=== PATIENT | female | born 1985 | race Caucasian/White ===

== ENCOUNTER 2020-06-05 11:27 | Outpatient (REF) | payer BC, SELFPAY ==
[2020-06-05 13:00] LABS: MANUAL DIFF FLAG NO
[2020-06-05 13:08] LABS: Basophils Percent Auto 0.3 % (0-2); Eosinophils Absolute Auto 0.1 X10*3/uL (0.0-0.4); Eosinophils Percent Auto 0.9 % (0-4); Hematocrit 38.2 % (37-47); Imm Gran Abs Auto 0.02 X10*3/uL (0.00-0.03); Imm Gran Pct Auto 0.2 % (0.0-0.4); Lymphocytes Absolute Auto 1.8 X10*3/uL (1.2-4.9); Lymphocytes Percent Auto 19.6 % (20-40); Mean Corpuscular Hemoglobin 30.4 pg (27.0-33.0); Mean Corpuscular Volume 89.5 fL (80-98); Mean Platelet Volume 11.3 fL (9.4-12.3); Monocytes Absolute Auto 0.5 X10*3/uL (0.1-1.2); Monocytes Percent Auto 5.9 % (2-11); Neutrophils Absolute Auto 6.5 X10*3/uL (2.0-8.3); Neutrophils Percent Auto 73.1 % (45-73); Platelet Count 242 X10*3/uL (160-400); Red Blood Count 4.27 X10*6/uL (4.20-5.50); Red Cell Distribution Width 11.9 % (11.0-16.0); White Blood Count 8.9 X10*3/uL (4.8-10.8)
[2020-06-05 13:28] LABS: Estimated Average Glucose 97 mg/dL
[2020-06-05 13:39] LABS: Alanine Aminotransferase 12 U/L (0-31); Albumin Level 4.1 g/dL (3.5-5.0); Alkaline Phosphatase 38 U/L (39-117); Anion Gap 10 (12-20); Aspartate Amino Transferase 16 U/L (5-31); Bilirubin Total 0.9 mg/dL (0.0-1.0); Blood Urea Nitrogen 17 mg/dL (9-16); C Reactive Protein 0.03 mg/dL (< or = 0.50); Carbon Dioxide 30 mmol/L (22-29); Chloride 105 mmol/L (96-108); Estimated Glomerular Filt Rate > 60; Glucose Random 69 mg/dL (60-115); Iron 128 mcg/dL (30-160); Percent Iron Saturation 38 % (15-50); Potassium 3.9 mmol/l (3.3-5.1); Rheumatoid Factor < 15.0 IU/mL (<15.0); Sodium 141 mmol/L (135-145); Total Iron Binding Capacity 339 mcg/dL (228-428); Total Protein 6.4 g/dL (6.5-8.0); Unsaturated Iron Binding 211 ug/dL
[2020-06-05 14:00] LABS: Erythrocyte Sedimentation Rate 3 MM/HR (0-20)
[2020-06-05 14:03] LABS: Ferritin 21 ng/mL (10-122); Free T4 (Free Thyroxine) 0.93 ng/dL (0.71-1.85); Thyroid Stimulating Hormone 1.38 uIU/mL (0.32-4.0); Vitamin D 25-OH Total 26.9 ng/mL (>30)
[2020-06-05 14:23] LABS: Folate > 20.0 ng/mL (> or = 4.0); Vitamin B12 866 pg/mL (200-900)
[2020-06-09 15:07] LABS: Anti Nuclear Antibody Screen NEGATIVE (NEGATIVE)
== END 2020-06-05 11:28 | disposition home or self-care (01) ==
LOC: HO.MANLDS 11:27
PROVIDERS: PCP Physician Assistant; Visit Provider Physician Assistant
DX: R53.83 Other fatigue (principal); E61.1 Iron deficiency; R42 Dizziness and giddiness
CPT/HCPCS: 36415; 80053; 82306; 82607; 82728; 82746; 83036; 83540; 84439; 84443; 85025; 85652; 86038; 86039; 86140; 86431

== ENCOUNTER 2021-06-13 10:53 | Inpatient (IN) | payer BC, SELFPAY ==
[2021-06-13 11:04] VITALS: BP 154/100; PULSE 87; RESP 20; TEMP 36.8; O2SAT 100; BMI 23.6
[2021-06-13 11:29] VITALS: BP 129/80; PULSE 65; RESP 18; O2SAT 100
[2021-06-13 11:53] LABS: UPreg QC Valid YES; Urine Pregnancy NEGATIVE (NEGATIVE)
--- NOTE | 2021-06-13 11:56 | ED.PSYCH ---
HPI - Psych General Chief Complaint: Psychiatric Symptoms <RAQUEL Tsai Last Filed: 06/13/21 17:34> Stated Complaint: crisis <RAQUEL Tsai Last Filed: 06/13/21 17:34> Time Seen by Provider: 06/13/21 11:40 <RAQUEL Tsai Last Filed: 06/13/21 17:34> Source: patient <RAQUEL Tsai Last Filed: 06/13/21 17:34> Mode of arrival: ambulatory <RAQUEL Tsai Last Filed: 06/13/21 17:34> History of Present Illness HPI Narrative: 36-year-old female with no significant past medical history s/p suicide attempts when vacuuming tied cord around her neck for 3-4 seconds and then called her mother. States had no pain to plan of doing this beforehand. Reports increased stressors at home with work/relationships. Denies oral/neck swelling, SOB, cough/choking, HI, H&H/drug use, VH/AH, N/V <RAQUEL Tsai - Last Filed: 06/13/21 17:34> MD complaint: suicidal ideation and feels depressed <RAQUEL Tsai Last Filed: 06/13/21 17:34> Related Data Home Medications: Home Medications Medication Instructions Recorded Confirmed lorazepam 0.5 mg tablet 1 tab PO BID PRN 06/13/21 06/13/21 <RAQUEL Tsai - Last Filed: 06/13/21 17:34> Allergies/Adverse Reactions: Allergies Allergy/AdvReac Type Severity Reaction Status Date / Time No Known Allergies Allergy Unverified 06/13/21 11:48 <RAQUEL Tsai - Last Filed: 06/13/21 17:34> Review of Systems Review of Systems: Constitutional: \No Fever, No Chills, No Fatigue, No Malaise ENT/Mouth: No Ear Pain, No Nasal Congestion, No sore throat Eyes: No Eye Pain, No Swelling Cardiovascular: No Chest Pain, No SOB Respiratory: No Cough, No Dyspnea Gastrointestinal: No Nausea, No Vomiting, No Diarrhea, No Constipation, No Abdominal pain Genitourinary: No Dysuria, No Urinary Frequency, No Hematuria Musculoskeletal: No joint pain, No Myalgias, No Joint Swelling Skin: No Skin Lesions, No rash Neuro: No Weakness, No Numbness, No Headache Psych: No Anxiety/Panic, + Depression, + SI, No HI, No AH/VH, No Social Issues <RAQUEL Tsai - Last Filed: 06/13/21 17:34> Yes all other systems are reviewed and are negative <RAQUEL Tsai - Last Filed: 06/13/21 17:34> PMFSH Past Medical History Medical History: Medical History No known health problems <RAQUEL Tsai - Last Filed: 06/13/21 17:34> Social History Social History: Social History Alcohol intake: current Alcohol intake frequency: holidays/special occasions only Patient Tobacco Use Status: Never used Tobacco Use of substances other than those prescribed or required for medical reasons: No Advance Directives: No Advance Directives Information Provided: No Guardian: No <RAQUEL Tsai - Last Filed: 06/13/21 17:34> Physical Exam Vital Signs: Vital Signs: Last Vital Signs Temp 98.2 F 06/14/21 06:29 Pulse 68 06/14/21 06:29 Resp 15 06/14/21 06:29 BP 102/53 L 06/14/21 06:29 Pulse Ox 97 06/14/21 06:29 Body Mass Index 23.6 <RAQUEL Tsai - Last Filed: 06/13/21 17:34> Vital Signs: Last Vital Signs Temp 98.2 F 06/14/21 06:29 Pulse 68 06/14/21 06:29 Resp 15 06/14/21 06:29 BP 102/53 L 06/14/21 06:29 Pulse Ox 97 06/14/21 06:29 Body Mass Index 23.6 <RAQUEL Padron - Last Filed: 06/14/21 07:41> Const: General: cooperative, healthy appearing, no acute distress and anxious <RAQUEL Tsai Last Filed: 06/13/21 17:34> Orientation/consciousness: patient oriented x3 <RAQUEL Tsai Last Filed: 06/13/21 17:34> Limitations: no limitations <Kay Vu PA - Last Filed: 06/13/21 17:34> HENMT: Head: Yes normal to inspection and Yes atraumatic <Kay Vu PA - Last Filed: 06/13/21 17:34> Ears: hearing grossly normal bilaterally <Kay Vu PA - Last Filed: 06/13/21 17:34> General nose exam: Normal external nose present <Kay Vu PA - Last Filed: 06/13/21 17:34> Face and sinus: Yes normal facial exam <Kay Vu PA - Last Filed: 06/13/21 17:34> Mouth: Normal oral and palatal mucosa present <Kay Vu PA - Last Filed: 06/13/21 17:34> Throat: Yes posterior oropharynx normal, Yes tonsils normal, Yes uvula midline, No peritonsillar mass and No uvular edema <Kay Vu PA - Last Filed: 06/13/21 17:34> Eyes: General: appearance normal, both eyes and all related structures <Kay Vu PA - Last Filed: 06/13/21 17:34> EOM: EOMs intact bilaterally <Kay Vu PA - Last Filed: 06/13/21 17:34> Neck: Other: No external erythema/ecchymosis/swelling or tenderness. No evidence of strangulation. <Kay Vu PA - Last Filed: 06/13/21 17:34> Neck: Yes normal visual inspection, Yes no lymphadenopathy, Yes no meningeal signs, Yes trachea midline, Yes supple, No anterior neck swelling and No midline deformity <Kay Vu PA - Last Filed: 06/13/21 17:34> Resp: Effort & Inspection: normal respiratory effort, not labored and no stridor <Kay Vu PA - Last Filed: 06/13/21 17:34> Auscultation: clear to auscultation bilaterally, no crackles, no rales, no rhonchi and no wheezes <Kay Vu PA - Last Filed: 06/13/21 17:34> Cardio: Rate: regular rate <Kay Vu PA - Last Filed: 06/13/21 17:34> Heart sounds: S1 normal heart sound present and S2 normal heart sound present <Kay Vu MO - Last Filed: 06/13/21 17:34> GI: Inspection: Yes normal to inspection <KayRAQUEL Colon - Last Filed: 06/13/21 17:34> Palpation (GI): Soft to palpation, nontender, no guarding and not rigid <Kay Vu MO - Last Filed: 06/13/21 17:34> Skin: Rashes: no rashes <Kay Vu MO - Last Filed: 06/13/21 17:34> Wounds: no wounds <Kay Vu MO - Last Filed: 06/13/21 17:34> Neuro: General: patient oriented x3, moves all extremities, no meningeal signs and CN's II-XI intact bilaterally <Kay Vu MO - Last Filed: 06/13/21 17:34> Gait exam (Neuro): Normal gait present <RAQUEL Tsai - Last Filed: 06/13/21 17:34> Extrem: General: Yes normal to inspection <Kay Vu MO - Last Filed: 06/13/21 17:34> Psych: Affect: Sad affect present and Anxious affect present <RAQUEL Tsai - Last Filed: 06/13/21 17:34> Attitude: cooperative <Kay Vu MO - Last Filed: 06/13/21 17:34> Thought content: Suicidality present and no homicidality <RAQUEL Tsai - Last Filed: 06/13/21 17:34> Insight: Good insight present (Psych) <Kay Vu MO - Last Filed: 06/13/21 17:34> Course Course Course Narrative: -1300--labs unremarkable, tox screen negative. Patient was evaluated by care team and is now an inpatient bed search. Physician observation initiated at 1:00 p.m. -1800--ED care transferred to [facility] pending inpatient bed search <RAQUEL Tsai - Last Filed: 06/13/21 17:34> Reevaluation(s) Reevaluation #1: At this time patient will remain physician observation as she is currently an inpatient bed search and needs more time for placement. BP noted to be lower than usual asked nurse for repeat vitals which are being done now. Last night was uneventful, patient was, cooperative. Vital signs are stable, lungs are clear, S1-S2 appreciated, abdomen soft nontender nondistended, no focal neuro deficits. <RAQUEL Padron - Last Filed: 06/14/21 07:41> Time: 07:39 <RAQUEL Padron - Last Filed: 06/14/21 07:41> MDM - Psych MDM Narrative Medical decision making narrative: 36-year-old female with no significant past medical history s/p suicide attempts when vacuuming tied cord around her neck for 3-4 seconds and then called her mother. On exam vital signs stable, and ADD, sad, tearful, anxious on exam, no evidence of strangulation, talking in complete sentences, no intraoral swelling. Lungs CTA, no stridor. Will obtain labs, [facility] and crisis consult <RAQUEL Tsai - Last Filed: 06/13/21 17:34> Medical Records Attestation: I reviewed the patient's medical records. <RAQUEL Tsai - Last Filed: 06/13/21 17:34> Lab Data Attestation: I reviewed the patient's lab results. <RAQUEL Tsai - Last Filed: 06/13/21 17:34> Result diagrams: : 06/13/21 12:01 06/13/21 12:01 <RAQUEL Tsai - Last Filed: 06/13/21 17:34> Labs: Lab Results 06/13/21 06/13/21 06/13/21 Range/Units 11:36 11:36 11:36 WBC (4.8-10.8) X10*3/uL RBC (4.20-5.50) X10*6/uL Hgb (12.0-16.0) g/dl Hct (37.0-47.0) % MCV (80.0-98.0) fL MCH (27.0-33.0) pg MCHC (31.0-35.0) g/dl RDW (11.0-16.0) % Plt Count (160-400) X10*3/uL MPV (9.4-12.3) fL Immature Gran % (Auto) (0.0-0.4) % Neut % (Auto) (45-73) % Lymph % (Auto) (20-40) % [place] % (Auto) (2-11) % Eos % (Auto) (0-4) % Baso % (Auto) (0-2) % Lymph # (Auto) (1.2-4.9) X10*3/uL [place] # (Auto) (0.1-1.2) X10*3/uL Eos # (Auto) (0.0-0.4) X10*3/uL Baso # (Auto) (0.0-0.2) X10*3/uL Abs Immat Gran (auto) (0.00-0.03) X10*3/uL Absolute Neuts (auto) (2.0-8.3) x10*3/uL Absolute Nucleated RBC (0.0-0.012) X10*3/uL Nucleated RBC % (auto) (0.0-0.2) /100WBC Sodium (135-145) mmol/L Potassium (3.3-5.1) mmol/L Chloride (96-108) mmol/L Carbon Dioxide (22-29) mmol/L Anion Gap (12-20) BUN (9-16) mg/dL Creatinine (0.5-1.4) mg/dL Estim Creat Clear Calc Estimated GFR Random Glucose (60-115) mg/dL Calcium (8.4-10.2) mg/dL Magnesium (1.6-2.6) mg/dL Total Bilirubin (0.0-1.0) mg/dL Direct Bilirubin (0.0-0.5) mg/dL AST (5-31) U/L ALT (0-31) U/L Alkaline Phosphatase (39-117) U/L Total Protein (6.5-8.0) g/dL Albumin (3.5-5.0) g/dL Urine Test NEGATIVE (NEGATIVE) Urine Opiates Screen Not Detected (Not Detect) Urine Fentanyl Screen Not Detected (Not Detect) Ur Barbiturates Screen Not Detected (Not Detect) Ur Phencyclidine Scrn Not Detected (Not Detect) Ur Amphetamines Screen Not Detected (Not Detect) U Benzodiazepines Scrn Not Detected (Not Detect) Urine Cocaine Screen Not Detected (Not Detect) U Marijuana (THC) Screen Not Detected (Not Detect) COVID-19 (FRANC) Negative (Negative) COVID-19 Clin Com See Note 06/13/21 06/13/21 Range/Units 12:01 12:01 WBC 7.4 (4.8-10.8) X10*3/uL RBC 4.33 (4.20-5.50) X10*6/uL Hgb 12.8 (12.0-16.0) g/dl Hct 39.0 (37.0-47.0) % MCV 90.1 (80.0-98.0) fL MCH 29.6 (27.0-33.0) pg MCHC 32.8 (31.0-35.0) g/dl RDW 12.4 (11.0-16.0) % Plt Count 248 (160-400) X10*3/uL MPV 10.0 (9.4-12.3) fL Immature Gran % (Auto) 0.3 (0.0-0.4) % Neut % (Auto) 70.3 (45-73) % Lymph % (Auto) 21.7 (20-40) % [place] % (Auto) 6.5 (2-11) % Eos % (Auto) 0.5 (0-4) % Baso % (Auto) 0.7 (0-2) % Lymph # (Auto) 1.6 (1.2-4.9) X10*3/uL [place] # (Auto) 0.5 (0.1-1.2) X10*3/uL Eos # (Auto) 0.0 (0.0-0.4) X10*3/uL Baso # (Auto) 0.1 (0.0-0.2) X10*3/uL Abs Immat Gran (auto) 0.02 (0.00-0.03) X10*3/uL Absolute Neuts (auto) 5.2 (2.0-8.3) x10*3/uL Absolute Nucleated RBC 0.000 (0.0-0.012) X10*3/uL Nucleated RBC % (auto) 0.0 (0.0-0.2) /100WBC Sodium 143 (135-145) mmol/L Potassium 4.1 (3.3-5.1) mmol/L Chloride 109 H (96-108) mmol/L Carbon Dioxide 25 (22-29) mmol/L Anion Gap 13 (12-20) BUN 12 (9-16) mg/dL Creatinine 0.82 (0.5-1.4) mg/dL Estim Creat Clear Calc 70.8 Estimated GFR > 60 Random Glucose 93 (60-115) mg/dL Calcium 9.5 (8.4-10.2) mg/dL Magnesium 1.8 (1.6-2.6) mg/dL Total Bilirubin 1.3 H (0.0-1.0) mg/dL Direct Bilirubin 0.5 (0.0-0.5) mg/dL AST 35 H D (5-31) U/L ALT 23 (0-31) U/L Alkaline Phosphatase 41 (39-117) U/L Total Protein 6.5 (6.5-8.0) g/dL Albumin 4.1 (3.5-5.0) g/dL Urine Test (NEGATIVE) Urine Opiates Screen (Not Detect) Urine Fentanyl Screen (Not Detect) Ur Barbiturates Screen (Not Detect) Ur Phencyclidine Scrn (Not Detect) Ur Amphetamines Screen (Not Detect) U Benzodiazepines Scrn (Not Detect) Urine Cocaine Screen (Not Detect) U Marijuana (THC) Screen (Not Detect) COVID-19 (FRANC) (Negative) COVID-19 Clin Com <RAQUEL Tsai - Last Filed: 06/13/21 17:34> Lab Results 06/13/21 06/13/21 06/13/21 Range/Units 11:36 11:36 11:36 WBC (4.8-10.8) X10*3/uL RBC (4.20-5.50) X10*6/uL Hgb (12.0-16.0) g/dl Hct (37.0-47.0) % MCV (80.0-98.0) fL MCH (27.0-33.0) pg MCHC (31.0-35.0) g/dl RDW (11.0-16.0) % Plt Count (160-400) X10*3/uL MPV (9.4-12.3) fL Immature Gran % (Auto) (0.0-0.4) % Neut % (Auto) (45-73) % Lymph % (Auto) (20-40) % [place] % (Auto) (2-11) % Eos % (Auto) (0-4) % Baso % (Auto) (0-2) % Lymph # (Auto) (1.2-4.9) X10*3/uL [place] # (Auto) (0.1-1.2) X10*3/uL Eos # (Auto) (0.0-0.4) X10*3/uL Baso # (Auto) (0.0-0.2) X10*3/uL Abs Immat Gran (auto) (0.00-0.03) X10*3/uL Absolute Neuts (auto) (2.0-8.3) x10*3/uL Absolute Nucleated RBC (0.0-0.012) X10*3/uL Nucleated RBC % (auto) (0.0-0.2) /100WBC Sodium (135-145) mmol/L Potassium (3.3-5.1) mmol/L Chloride (96-108) mmol/L Carbon Dioxide (22-29) mmol/L Anion Gap (12-20) BUN (9-16) mg/dL Creatinine (0.5-1.4) mg/dL Estim Creat Clear Calc Estimated GFR Random Glucose (60-115) mg/dL Calcium (8.4-10.2) mg/dL Magnesium (1.6-2.6) mg/dL Total Bilirubin (0.0-1.0) mg/dL Direct Bilirubin (0.0-0.5) mg/dL AST (5-31) U/L ALT (0-31) U/L Alkaline Phosphatase (39-117) U/L Total Protein (6.5-8.0) g/dL Albumin (3.5-5.0) g/dL Urine Test NEGATIVE (NEGATIVE) Urine Opiates Screen Not Detected (Not Detect) Urine Fentanyl Screen Not Detected (Not Detect) Ur Barbiturates Screen Not Detected (Not Detect) Ur Phencyclidine Scrn Not Detected (Not Detect) Ur Amphetamines Screen Not Detected (Not Detect) U Benzodiazepines Scrn Not Detected (Not Detect) Urine Cocaine Screen Not Detected (Not Detect) U Marijuana (THC) Screen Not Detected (Not Detect) COVID-19 (FRANC) Negative (Negative) COVID-19 Clin Com See Note 06/13/21 06/13/21 Range/Units 12:01 12:01 WBC 7.4 (4.8-10.8) X10*3/uL RBC 4.33 (4.20-5.50) X10*6/uL Hgb 12.8 (12.0-16.0) g/dl Hct 39.0 (37.0-47.0) % MCV 90.1 (80.0-98.0) fL MCH 29.6 (27.0-33.0) pg MCHC 32.8 (31.0-35.0) g/dl RDW 12.4 (11.0-16.0) % Plt Count 248 (160-400) X10*3/uL MPV 10.0 (9.4-12.3) fL Immature Gran % (Auto) 0.3 (0.0-0.4) % Neut % (Auto) 70.3 (45-73) % Lymph % (Auto) 21.7 (20-40) % [place] % (Auto) 6.5 (2-11) % Eos % (Auto) 0.5 (0-4) % Baso % (Auto) 0.7 (0-2) % Lymph # (Auto) 1.6 (1.2-4.9) X10*3/uL [place] # (Auto) 0.5 (0.1-1.2) X10*3/uL Eos # (Auto) 0.0 (0.0-0.4) X10*3/uL Baso # (Auto) 0.1 (0.0-0.2) X10*3/uL Abs Immat Gran (auto) 0.02 (0.00-0.03) X10*3/uL Absolute Neuts (auto) 5.2 (2.0-8.3) x10*3/uL Absolute Nucleated RBC 0.000 (0.0-0.012) X10*3/uL Nucleated RBC % (auto) 0.0 (0.0-0.2) /100WBC Sodium 143 (135-145) mmol/L Potassium 4.1 (3.3-5.1) mmol/L Chloride 109 H (96-108) mmol/L Carbon Dioxide 25 (22-29) mmol/L Anion Gap 13 (12-20) BUN 12 (9-16) mg/dL Creatinine 0.82 (0.5-1.4) mg/dL Estim Creat Clear Calc 70.8 Estimated GFR > 60 Random Glucose 93 (60-115) mg/dL Calcium 9.5 (8.4-10.2) mg/dL Magnesium 1.8 (1.6-2.6) mg/dL Total Bilirubin 1.3 H (0.0-1.0) mg/dL Direct Bilirubin 0.5 (0.0-0.5) mg/dL AST 35 H D (5-31) U/L ALT 23 (0-31) U/L Alkaline Phosphatase 41 (39-117) U/L Total Protein 6.5 (6.5-8.0) g/dL Albumin 4.1 (3.5-5.0) g/dL Urine Test (NEGATIVE) Urine Opiates Screen (Not Detect) Urine Fentanyl Screen (Not Detect) Ur Barbiturates Screen (Not Detect) Ur Phencyclidine Scrn (Not Detect) Ur Amphetamines Screen (Not Detect) U Benzodiazepines Scrn (Not Detect) Urine Cocaine Screen (Not Detect) U Marijuana (THC) Screen (Not Detect) COVID-19 (FRANC) (Negative) COVID-19 Clin Com <RAQUEL Padron - Last Filed: 06/14/21 07:41> Discharge Plan Discharge Clinical Impression: Suicide attempt <RAQUEL Tsai - Last Filed: 06/13/21 17:34> Patient Disposition: Still a Patient <RAQUEL Tsai - Last Filed: 06/13/21 17:34> Prescriptions: No Action lorazepam 0.5 mg tablet 1 tab PO BID PRN (Reason: Anxiety) RF: 0 <RAQUEL Tsai - Last Filed: 06/13/21 17:34>
[2021-06-13 12:01] LABS: COVID-19 Test Negative (Negative)
[2021-06-13 12:07] LABS: MANUAL DIFF FLAG NO
[2021-06-13 12:09] LABS: Amphetamine Screen Urine Not Detected (Not Detect); Barbiturates, Urine Not Detected (Not Detect); Benzodiazepines Screen Urine Not Detected (Not Detect); Cannabinoid Screen Urine Not Detected (Not Detect); Cocaine Screen Urine Not Detected (Not Detect); Fentanyl, urine Not Detected (Not Detect); Opiate Screen Urine Not Detected (Not Detect); Phencyclidine Screen Urine Not Detected (Not Detect)
[2021-06-13 12:10] LABS: Basophils Absolute Auto 0.1 X10*3/uL (0.0-0.2); Basophils Percent Auto 0.7 % (0-2); Eosinophils Percent Auto 0.5 % (0-4); Hemoglobin 12.8 g/dl (12.0-16.0); Imm Gran Abs Auto 0.02 X10*3/uL (0.00-0.03); Imm Gran Pct Auto 0.3 % (0.0-0.4); Lymphocytes Absolute Auto 1.6 X10*3/uL (1.2-4.9); Lymphocytes Percent Auto 21.7 % (20-40); Mean Corpuscular HGB Conc 32.8 g/dl (31.0-35.0); Mean Corpuscular Hemoglobin 29.6 pg (27.0-33.0); Mean Corpuscular Volume 90.1 fL (80.0-98.0); Monocytes Absolute Auto 0.5 X10*3/uL (0.1-1.2); Monocytes Percent Auto 6.5 % (2-11); Neutrophils Absolute Auto 5.2 x10*3/uL (2.0-8.3); Neutrophils Percent Auto 70.3 % (45-73); Platelet Count 248 X10*3/uL (160-400); Red Blood Count 4.33 X10*6/uL (4.20-5.50); Red Cell Distribution Width 12.4 % (11.0-16.0); White Blood Count 7.4 X10*3/uL (4.8-10.8)
[2021-06-13] MEDS: LORazepam 1 MG TABLET PO (12:14)
[2021-06-13 12:21] LABS: Alanine Aminotransferase 23 U/L (0-31); Albumin Level 4.1 g/dL (3.5-5.0); Alkaline Phosphatase 41 U/L (39-117); Anion Gap 13 (12-20); Aspartate Amino Transferase 35 U/L (5-31); Bilirubin Direct 0.5 mg/dL (0.0-0.5); Bilirubin Total 1.3 mg/dL (0.0-1.0); Blood Urea Nitrogen 12 mg/dL (9-16); Calcium 9.5 mg/dL (8.4-10.2); Carbon Dioxide 25 mmol/L (22-29); Chloride 109 mmol/L (96-108); Creatinine Clr Calc Pharmacy 70.8; Estimated Glomerular Filt Rate > 60; Glucose Random 93 mg/dL (60-115); Magnesium 1.8 mg/dL (1.6-2.6); Potassium 4.1 mmol/L (3.3-5.1); Sodium 143 mmol/L (135-145); Total Protein 6.5 g/dL (6.5-8.0)
--- NOTE | 2021-06-13 13:00 | PC.NURSE ---
pt's mother is in the common area with her.
--- NOTE | 2021-06-13 13:23 | PC.NURSE ---
1230. pt crying. states she has many stressors including that she broke off engagement in the spring. also talks of absorbing other's stress . Pt has steady housing and income. No documented mental health hx but states i think i have seasonal depression . Update was given to Mom and DAd with permission and Mom talked about eating disorders during teen years. Pt may have been interrrupted during act of putting vaccum cleaning cord around neck by phonecall from Mom. Patient did as that parents come and take her to the ED. Doesn't feel like eating currently.
--- NOTE | 2021-06-13 13:29 | PC.NURSE ---
visit from MOm. Both remain calm.
--- NOTE | 2021-06-13 14:29 | PC.NURSE ---
no ligature price noted
[2021-06-13 15:56] VITALS: BP 123/94; PULSE 89; TEMP 37; O2SAT 99
--- NOTE | 2021-06-13 20:58 | PC.NURSE ---
settling in to sleep. c/o headache and requesting ativan to sleep. has been calm, crying at times, up to food/BR. denies SI at this time.
[2021-06-13] MEDS: Ibuprofen 400 MG TABLET PO (21:12)
[2021-06-13] MEDS: LORazepam 0.5 MG TABLET PO (21:12)
--- NOTE | 2021-06-14 | ECG_ITS ---
Test Reason : medical clearance Blood Pressure : / mmHG Vent. Rate : 064 BPM Atrial Rate : 064 BPM P-R Int : 154 ms QRS Dur : 088 ms QT Int : 412 ms P-R-T Axes : 048 078 050 degrees QTc Int : 425 ms Normal sinus rhythm with sinus arrhythmia RSR' or QR pattern in V1 suggests right ventricular conduction delay Otherwise normal ECG No previous ECGs available Referred By: Tereso Valdez Electronically Signed By:SYL CHRISTY MD
--- NOTE | 2021-06-14 05:54 | PC.NURSE ---
Patient slept through the night, no distress observed/reported, behavior appropriate per report, VSS, disposition is section 12 inpatient bed search, will continue to monitor.
[2021-06-14 06:29] VITALS: BP 102/53; PULSE 68; RESP 15; TEMP 36.8; O2SAT 97
--- NOTE | 2021-06-14 07:08 | PC.NURSE ---
patient appears to remain at rest at present appears to remain asleep respirations are even and unlabored, appears in no distress.
[2021-06-14 07:54] VITALS: BP 126/81; PULSE 76; RESP 14; TEMP 36.5; O2SAT 96
--- NOTE | 2021-06-14 14:35 | PC.NURSE ---
called imc for report, waiting for a call back
[2021-06-14 18:00] VITALS: BP 115/84; PULSE 78; TEMP 36.7
--- NOTE | 2021-06-14 18:45 | PC.ADMIT ---
Patient is a single female, age 36, admitted as a CV admission to at 1555. She [place] [facility] [place] evaluated by the [place]ARE team and deemed in need of IPLOC. Patient has no previous IPLOC admissions for any psychiatric issues and denies any medical issues. Patient had apparently been contemplating suicide a couple times a week since October of 2020 with no specific plan in mind. The patient said that her job has been very stressful and she is also in a relationship with some stress involved. At this time her admission diagnosis is Unspecified Depressive Disorder. Patient was polite and cooperative during the admission process; she was tearful off and on. When patient was asked how she felt about her suicide attempt yesterday, putting a vacuum mold cleaner cord around her neck for a few seconds, patient said the was Indifferent that she survived. Patient said that she was not currently having any SI and said that she would let staff know if she has any thoughts to hurt herself or kill herself while on . Provider is aware of the admission and orders are in place. All admission paperwork completed and signed. Patient will be on 5 minute safety checks with a locked bathroom.
--- NOTE | 2021-06-14 19:48 | P.PNPSI_ITS ---
Subjective Subjective Reason For Visit: Depression, S/P suicide attempt Diagnostics Vital Signs (24Hr): Vital Signs - 24 hr 06/14/21 06:29 06/14/21 07:54 06/14/21 18:00 Temperature 98.2 F 97.7 F 98.0 F Pulse Rate 68 76 78 Respiratory Rate 15 14 Blood Pressure 102/53 L 126/81 115/84 Pulse Oximetry 97 96 Body Mass Index 23.6 Labs Results: 06/13/21 12:01 06/13/21 12:01 Labs: Laboratory Results - last 48 hr 06/13/21 06/13/21 06/13/21 11:36 11:36 11:36 WBC RBC Hgb Hct MCV MCH MCHC RDW Plt Count MPV Immature Gran % (Auto) Neut % (Auto) Lymph % (Auto) [place] % (Auto) Eos % (Auto) Baso % (Auto) Lymph # (Auto) [place] # (Auto) Eos # (Auto) Baso # (Auto) Abs Immat Gran (auto) Absolute Neuts (auto) Absolute Nucleated RBC Nucleated RBC % (auto) Sodium Potassium Chloride Carbon Dioxide Anion Gap BUN Creatinine Estim Creat Clear Calc Estimated GFR Random Glucose Calcium Magnesium Total Bilirubin Direct Bilirubin AST ALT Alkaline Phosphatase Total Protein Albumin Urine Test NEGATIVE Urine Opiates Screen Not Detected Urine Fentanyl Screen Not Detected Ur Barbiturates Screen Not Detected Ur Phencyclidine Scrn Not Detected Ur Amphetamines Screen Not Detected U Benzodiazepines Scrn Not Detected Urine Cocaine Screen Not Detected U Marijuana (THC) Screen Not Detected COVID-19 (FRANC) Negative COVID-19 Clin Com See Note 06/13/21 06/13/21 12:01 12:01 WBC 7.4 RBC 4.33 Hgb 12.8 Hct 39.0 MCV 90.1 MCH 29.6 MCHC 32.8 RDW 12.4 Plt Count 248 MPV 10.0 Immature Gran % (Auto) 0.3 Neut % (Auto) 70.3 Lymph % (Auto) 21.7 [place] % (Auto) 6.5 Eos % (Auto) 0.5 Baso % (Auto) 0.7 Lymph # (Auto) 1.6 [place] # (Auto) 0.5 Eos # (Auto) 0.0 Baso # (Auto) 0.1 Abs Immat Gran (auto) 0.02 Absolute Neuts (auto) 5.2 Absolute Nucleated RBC 0.000 Nucleated RBC % (auto) 0.0 Sodium 143 Potassium 4.1 Chloride 109 H Carbon Dioxide 25 Anion Gap 13 BUN 12 Creatinine 0.82 Estim Creat Clear Calc 70.8 Estimated GFR > 60 Random Glucose 93 Calcium 9.5 Magnesium 1.8 Total Bilirubin 1.3 H Direct Bilirubin 0.5 AST 35 H D ALT 23 Alkaline Phosphatase 41 Total Protein 6.5 Albumin 4.1 Urine Test Urine Opiates Screen Urine Fentanyl Screen Ur Barbiturates Screen Ur Phencyclidine Scrn Ur Amphetamines Screen U Benzodiazepines Scrn Urine Cocaine Screen U Marijuana (THC) Screen COVID-19 (FRANC) COVID-19 Clin Com Medications Medications Current Medications Acetaminophen (Acetaminophen 325 Mg Tablet) 650 mg PO Q6H PRN PRN Reason: Headache/Pain Mild Scale (1-3) Al Hydroxide/Mg Hydroxide (Magnesium Hydrox/Alum Hydrox 30 Ml Oral.Susp) 30 ml PO Q6H PRN PRN Reason: Heartburn/Nausea Hydroxyzine HCl (Hydroxyzine Hcl 25 Mg Tablet) 25 mg PO BEDTIME PRN PRN Reason: Anxiety Lorazepam (Lorazepam 0.5 Mg Tablet) 0.5 mg PO BID PRN PRN Reason: Anxiety Last Admin: 06/13/21 21:12 Dose: 0.5 mg Documented by: Magnesium Hydroxide (Milk Of Magnesia 30 Ml Oral.Susp) 30 ml PO DAILY PRN PRN Reason: Constipation Trazodone HCl (Trazodone Hcl 50 Mg Tablet) 50 mg PO BEDTIME PRN PRN Reason: Insomnia Allergies Allergies Allergy/AdvReac Type Severity Reaction Status Date / Time No Known Allergies Allergy Unverified 06/13/21 11:48 Assessment & Plan I spent minutes with the patient and/or on the patient floor today, greater than?50% of which was spent counseling/coordinating care.
[2021-06-14] MEDS: LORazepam 0.5 MG TABLET PO (21:42)
--- NOTE | 2021-06-14 21:51 | P.HPPS_ITS ---
HPI Date of Service: 06/14/21 Chief Complaint: Depression, S/P suicide attempt Sources of Information: patient interviewed, chart reviewed and crisis/core team assessment reviewed HPI Subjective Notes: Kline Warning, Conditional Voluntary and 3 Day Healthcare Proxy: No Guardianship: No Medical Problems Affecting Mental Status: No Narrative: Pt ia 36 year old female who carries a dx of MDD, recurrent and YSABEL. She self-presented to [facility] on 06/13/21 after an incident in which she was vacuuming and on impulse tied the cord around her neck for 3-4 seconds. She then called her mother who brought her to the ED.? Precipitating factors include hx of seasonal depression, has increased stressors at work, and recent significant breakup with fiance in 11/04 (they were supposed to be in 03/06, together on/ off for 18 yrs). Utox neg, no alcohol use. No OP treatment. On ativan 0.5 mg BID PRN for anxiety from PCP. I evaluated the pt this morning and upon inquiry she reports she has been feeling ?overwhelmed,? she is tearful throughout interview. She denies wanting to and does not think wrapping the vacuum cocoa bean cleaner cord was a suicide attempt, but says she was feeling significant distress. Denies hx of SIB or suicide attempts. Sleep has been on and off, ?last night I slept very well.? Says her PCP prescribed ativan 0.5 mg during the pandemic for anxiety but she has been recently overusing it and taking 3-4 tabs a night ?to feel numb.? Pt identifies numerous psychosocial stressors. Says she wakes up early and goes to the gym every day, works out for an hour to an hour and a half, worries about her wt due to family hx (sisters are overweight). She has disordered eating bx of restricting, does not want to weight over 125 lb. Says she has a long hx of seasonal affective sx, ?the time change is never good for me.? Sx include low energy, ?Im like a bear, i could hibernate.? She has a hx of utilizing coping skills such as Journaling and listening to motivational speeches on youtube, but says she has been ?slacking lately? since the time change. Pt reports she has friends and talks to her mom, but overall does not disclose personal information to her family members and is not close with her sisters, has long hx of insecure attachments. Reports work has been stressful due to staff shortages and she has felt overworked. Also reports she did not ever process her break up with her fiance in October, ?I never really cried or came to terms with it,? but has been feeling more emotional about this since her Birthday and with the holidays coming up, ?its catching up to me.? Figiselle had alcohol abuse issues, it was not a healthy relationship. Pt reports long hx of anxiety, internalizing bx, hard on herself, doesnt like ?when things go wrong.? Has irritability, will yell ?at the people I love the most,? denies aggressive bx. Denies sx of PTSD. Denies psychosis. No hx of manic or hypomanic episodes endorsed. Past Psychiatric History: -Has had brief attempts at OP therapy but did not connect with therapist, last saw one for two months over the summer after her breakup with her fiance. -No hx of past psychotropic medication (other than current ativan script) or IPLOC -Hx of seasonal depression since adolescence. Medical Evaluation Reviewed: Yes [facility] Medical History No known health problems Family History: -sisters: depression -father: alcoholic. -mom: ?nervous angie Social History: -Pt born and raised in [place], [place]. Has older sister and twin sister, parents still together. -Lives alone with 3 cats -Pt is a corrections unit supervisor at [employer] Substance History: -Cannabis: occasional use. Trauma History: -Has exposure to fathers alcoholism, parents fighting. Diagnostics Vital Signs (24Hr): Vital Signs - 24 hr 06/14/21 06:29 06/14/21 07:54 06/14/21 18:00 Temperature 98.2 F 97.7 F 98.0 F Pulse Rate 68 76 78 Respiratory Rate 15 14 Blood Pressure 102/53 L 126/81 115/84 Pulse Oximetry 97 96 Body Mass Index 23.6 Labs Results: 06/13/21 12:01 06/13/21 12:01 Labs: Laboratory Results - last 48 hr 06/13/21 06/13/21 06/13/21 11:36 11:36 11:36 WBC RBC Hgb Hct MCV MCH MCHC RDW Plt Count MPV Immature Gran % (Auto) Neut % (Auto) Lymph % (Auto) Eaton % (Auto) Eos % (Auto) Baso % (Auto) Lymph # (Auto) Eaton # (Auto) Eos # (Auto) Baso # (Auto) Abs Immat Gran (auto) Absolute Neuts (auto) Absolute Nucleated RBC Nucleated RBC % (auto) Sodium Potassium Chloride Carbon Dioxide Anion Gap BUN Creatinine Estim Creat Clear Calc Estimated GFR Random Glucose Calcium Magnesium Total Bilirubin Direct Bilirubin AST ALT Alkaline Phosphatase Total Protein Albumin Urine Test NEGATIVE Urine Opiates Screen Not Detected Urine Fentanyl Screen Not Detected Ur Barbiturates Screen Not Detected Ur Phencyclidine Scrn Not Detected Ur Amphetamines Screen Not Detected U Benzodiazepines Scrn Not Detected Urine Cocaine Screen Not Detected U Marijuana (THC) Screen Not Detected COVID-19 (FRANC) Negative COVID-19 [email or web address] See Note 06/13/21 06/13/21 12:01 12:01 WBC 7.4 RBC 4.33 Hgb 12.8 Hct 39.0 MCV 90.1 MCH 29.6 MCHC 32.8 RDW 12.4 Plt Count 248 MPV 10.0 Immature Gran % (Auto) 0.3 Neut % (Auto) 70.3 Lymph % (Auto) 21.7 Eaton % (Auto) 6.5 Eos % (Auto) 0.5 Baso % (Auto) 0.7 Lymph # (Auto) 1.6 Eaton # (Auto) 0.5 Eos # (Auto) 0.0 Baso # (Auto) 0.1 Abs Immat Gran (auto) 0.02 Absolute Neuts (auto) 5.2 Absolute Nucleated RBC 0.000 Nucleated RBC % (auto) 0.0 Sodium 143 Potassium 4.1 Chloride 109 H Carbon Dioxide 25 Anion Gap 13 BUN 12 Creatinine 0.82 Estim Creat Clear Calc 70.8 Estimated GFR > 60 Random Glucose 93 Calcium 9.5 Magnesium 1.8 Total Bilirubin 1.3 H Direct Bilirubin 0.5 AST 35 H D ALT 23 Alkaline Phosphatase 41 Total Protein 6.5 Albumin 4.1 Urine Test Urine Opiates Screen Urine Fentanyl Screen Ur Barbiturates Screen Ur Phencyclidine Scrn Ur Amphetamines Screen U Benzodiazepines Scrn Urine Cocaine Screen U Marijuana (THC) Screen COVID-19 (FRANC) COVID-19 [employer] Com Meds/Allergies Meds Home Medications Acetaminophen (Acetaminophen 325 Mg Tablet) 650 mg PO Q6H PRN PRN Reason: Headache/Pain Mild Scale (1-3) Al Hydroxide/Mg Hydroxide (Magnesium Hydrox/Alum Hydrox 30 Ml Oral.Susp) 30 ml PO Q6H PRN PRN Reason: Heartburn/Nausea Hydroxyzine HCl (Hydroxyzine Hcl 25 Mg Tablet) 25 mg PO BEDTIME PRN PRN Reason: Anxiety Lorazepam (Lorazepam 0.5 Mg Tablet) 0.5 mg PO BID PRN PRN Reason: Anxiety Last Admin: 06/14/21 21:42 Dose: 0.5 mg Documented by: Magnesium Hydroxide (Milk Of Magnesia 30 Ml Oral.Susp) 30 ml PO DAILY PRN PRN Reason: Constipation Trazodone HCl (Trazodone Hcl 50 Mg Tablet) 50 mg PO BEDTIME PRN PRN Reason: Insomnia Allergies Allergies Allergy/AdvReac Type Severity Reaction Status Date / Time No Known Allergies Allergy Unverified 06/13/21 11:48 Mental Status Exam Mental Status Exam Narrative: A&O. Somewhat disheveled appearance, eyelashes fake and falling out, in bathrobe brought from home. Good eye contact, attentive. No Tics or Tremors. No abnormal involuntary movements. Anxious but overall cooperative, engaged. Non-pressured speech, spontaneous with regular rate and rhythm, normal volume and prosody. No prolonged speech latency or dysarthria. Mood is ?depressed,? affect is anxious, tearful. Denies SI/SIB/HI upon inquiry. Denies A/VH or delusional thought content. Thoughts are coherent, organized. No known cognitive or memory impairment. Insight/ Judgment limited but adequate. Assessment & Plan Assessment & Plan (1) MDD (major depressive disorder), recurrent episode, moderate: Status: Acute Code(s): F33.1 - Major depressive disorder, recurrent, moderate (2) Seasonal affective disorder: Status: Acute Code(s): F33.8 - Other recurrent depressive disorders (3) YSABEL (generalized anxiety disorder): Status: Acute Code(s): F41.1 - Generalized anxiety disorder Assessment and Plan: Pt is a 36 y.o. female who reports long hx of seasonal affective disorder, however sx may more likely be a function of undiagnosed MDD, recurrent episode and YSABEL, as pt is high functioning but has been struggling with anxiety and mood sx for some time. She has a hx of restricting her eating, over exercising, low self esteem, hard on self, and has strained relationships in family system due to untreated father's alcoholism. Pt recently ended engagement to man she has been with on/ off for 18 yrs, describes him as alcoholic and the relationship was unhealthy. Pt endorses sx of irritability with increasing anxious distress in the context of feeling overworked. Plan: Pt wants to continue on ativan 0.5 mg BID PRN, prescribed by PCP. She does acknoweledge hx of overuse, however she is attached to this medication and precontemplative of discontinuing. Pt states she is interested in OP therapy and ambivalent about medication, however would be open to a trial of a low dose medication to help with sx of depression and anxiety. Discussed lexapro but will defer to primary team in the AM. Monitor response to medications. Monitor for safety in the milieu. Discharge on stabilization. Patient seen. Chart reviewed. Discussed with team. Obtain collateral contact info?as needed Reason for continued inpatient stay Substantial Risk for: harm to self and med/psych decompensation
[2021-06-15 06:00] VITALS: BP 120/83; PULSE 70; TEMP 36.6
[2021-06-15 09:16] LABS: Estimated Average Glucose 97 mg/dL; Hemoglobin A1C 117.0839 umol/L
[2021-06-15 09:18] LABS: Cholesterol 185 mg/dL; HDL Cholesterol 63 mg/dL; LDL Cholesterol Calculated 110 mg/dl; Triglycerides 60 mg/dL
[2021-06-15 09:39] LABS: Thyroid Stimulating Hormone 1.95 uIU/mL (0.32-4.0)
--- NOTE | 2021-06-15 09:47 | HO.PSYCHPN ---
Subjective Subjective Date of Service: 06/15/21 Reason For Visit: Depression, S/P suicide attempt Interim History: Patient reports that she is glad she is alive and denies any SI. She is upset by this recent event and is still perplexed as to how she could have done such a thing, denying any plan prior to this impulsive move. Patient discussed her history of anxiety and her daily worries of various things including bills, relationships with friends, the quality of her work, etcetera. These worries carry over into the evening in cause her to have trouble sleeping. Also interferes with relationships. Patient says about twice a week she gets to near panic. Patient shared gratitude for discussion and although formally against taking medications, will consider a trial of an SSRI given that this level of anxiety has become overwhelming to her. That said she would very much like to obtain a therapist and feels the need to process both recent events life longer experiences. She is also interested in attending partial post discharge. Patient did put in a 3 day notice today saying that she finds this environment triggering; she has supportive friends and family and while she agrees she needs help she does not feel the need to be on a locked unit which she reports seems to be counterproductive. Patient has no other history of suicide attempt andis not even sure this was an actual suicide attempt or just an impulsive gesture, though it did scare her. Denies history of trauma No history of manic type behaviors or episodes Father is addicted to alcohol Mental Status Exam Mental Status Exam Narrative: Pt is alert and oriented; behavior is cooperative, friendly; dressed in bathrobe from home with good hygiene; mood is described as anxious and affect congruent, intermittently tearful; eye contact appropriate; Speech is normal rate, volume and prosody and not pressured; no psychomotor agitation/retardation present; thought process is organized, logical and goal directed. Thought content is on getting treatment; otherwise pertinent to relevant topics and without any delusional content, paranoid ideations or grandiosity; denies any SI/HI. There is no evidence of perceptual disturbance. Patients insight and judgment mildly impaired but adequate. Diagnostics Vital Signs (24Hr): Vital Signs - 24 hr 06/14/21 18:00 06/15/21 06:00 Temperature 98.0 F 98 F Pulse Rate 78 70 Blood Pressure 115/84 120/83 Body Mass Index 23.6 Labs Results: 06/13/21 12:01 06/13/21 12:01 Labs: Laboratory Results - last 48 hr 06/13/21 06/13/21 06/13/21 11:36 11:36 11:36 WBC RBC Hgb Hct MCV MCH MCHC RDW Plt Count MPV Immature Gran % (Auto) Neut % (Auto) Lymph % (Auto) Cherry % (Auto) Eos % (Auto) Baso % (Auto) Lymph # (Auto) Cherry # (Auto) Eos # (Auto) Baso # (Auto) Abs Immat Gran (auto) Absolute Neuts (auto) Absolute Nucleated RBC Nucleated RBC % (auto) Sodium Potassium Chloride Carbon Dioxide Anion Gap BUN Creatinine Estim Creat Clear Calc Estimated GFR Random Glucose Estimat Average Glucose Hemoglobin A1c % Calcium Magnesium Total Bilirubin Direct Bilirubin AST ALT Alkaline Phosphatase Total Protein Albumin Triglycerides Cholesterol LDL Cholesterol, Calc HDL Cholesterol TSH Free T4 Urine Test NEGATIVE Urine Opiates Screen Not Detected Urine Fentanyl Screen Not Detected Ur Barbiturates Screen Not Detected Ur Phencyclidine Scrn Not Detected Ur Amphetamines Screen Not Detected U Benzodiazepines Scrn Not Detected Urine Cocaine Screen Not Detected U Marijuana (THC) Screen Not Detected COVID-19 (FRANC) Negative COVID-19 Clin Com See Note 06/13/21 06/13/21 06/15/21 12:01 12:01 08:13 WBC 7.4 RBC 4.33 Hgb 12.8 Hct 39.0 MCV 90.1 MCH 29.6 MCHC 32.8 RDW 12.4 Plt Count 248 MPV 10.0 Immature Gran % (Auto) 0.3 Neut % (Auto) 70.3 Lymph % (Auto) 21.7 Cherry % (Auto) 6.5 Eos % (Auto) 0.5 Baso % (Auto) 0.7 Lymph # (Auto) 1.6 Cherry # (Auto) 0.5 Eos # (Auto) 0.0 Baso # (Auto) 0.1 Abs Immat Gran (auto) 0.02 Absolute Neuts (auto) 5.2 Absolute Nucleated RBC 0.000 Nucleated RBC % (auto) 0.0 Sodium 143 Potassium 4.1 Chloride 109 H Carbon Dioxide 25 Anion Gap 13 BUN 12 Creatinine 0.82 Estim Creat Clear Calc 70.8 Estimated GFR > 60 Random Glucose 93 Estimat Average Glucose 97 Hemoglobin A1c % 5.0 Calcium 9.5 Magnesium 1.8 Total Bilirubin 1.3 H Direct Bilirubin 0.5 AST 35 H D ALT 23 Alkaline Phosphatase 41 Total Protein 6.5 Albumin 4.1 Triglycerides Cholesterol LDL Cholesterol, Calc HDL Cholesterol TSH Free T4 Urine Test Urine Opiates Screen Urine Fentanyl Screen Ur Barbiturates Screen Ur Phencyclidine Scrn Ur Amphetamines Screen U Benzodiazepines Scrn Urine Cocaine Screen U Marijuana (THC) Screen COVID-19 (FRANC) COVID-19 [employer] 06/15/21 08:13 WBC RBC Hgb Hct MCV MCH MCHC RDW Plt Count MPV Immature Gran % (Auto) Neut % (Auto) Lymph % (Auto) Cherry % (Auto) Eos % (Auto) Baso % (Auto) Lymph # (Auto) Cherry # (Auto) Eos # (Auto) Baso # (Auto) Abs Immat Gran (auto) Absolute Neuts (auto) Absolute Nucleated RBC Nucleated RBC % (auto) Sodium Potassium Chloride Carbon Dioxide Anion Gap BUN Creatinine Estim Creat Clear Calc Estimated GFR Random Glucose Estimat Average Glucose Hemoglobin A1c % Calcium Magnesium 2.0 Total Bilirubin Direct Bilirubin AST ALT Alkaline Phosphatase Total Protein Albumin Triglycerides 60 Cholesterol 185 LDL Cholesterol, Calc 110 HDL Cholesterol 63 TSH 1.95 Free T4 1.00 Urine Test Urine Opiates Screen Urine Fentanyl Screen Ur Barbiturates Screen Ur Phencyclidine Scrn Ur Amphetamines Screen U Benzodiazepines Scrn Urine Cocaine Screen U Marijuana (THC) Screen COVID-19 (FRANC) COVID-19 Clin Com Medications Medications Current Medications Acetaminophen (Acetaminophen 325 Mg Tablet) 650 mg PO Q6H PRN PRN Reason: Headache/Pain Mild Scale (1-3) Al Hydroxide/Mg Hydroxide (Magnesium Hydrox/Alum Hydrox 30 Ml Oral.Susp) 30 ml PO Q6H PRN PRN Reason: Heartburn/Nausea Hydroxyzine HCl (Hydroxyzine Hcl 25 Mg Tablet) 25 mg PO BEDTIME PRN PRN Reason: Anxiety Lorazepam (Lorazepam 0.5 Mg Tablet) 0.5 mg PO BID PRN PRN Reason: Anxiety Last Admin: 06/14/21 21:42 Dose: 0.5 mg Documented by: Magnesium Hydroxide (Milk Of Magnesia 30 Ml Oral.Susp) 30 ml PO DAILY PRN PRN Reason: Constipation Trazodone HCl (Trazodone Hcl 50 Mg Tablet) 50 mg PO BEDTIME PRN PRN Reason: Insomnia Allergies Allergies Allergy/AdvReac Type Severity Reaction Status Date / Time No Known Allergies Allergy Unverified 06/13/21 11:48 Assessment & Plan Assessment & Plan (1) MDD (major depressive disorder), recurrent episode, moderate: Status: Acute Code(s): F33.1 - Major depressive disorder, recurrent, moderate (2) Seasonal affective disorder: Status: Acute Code(s): F33.8 - Other recurrent depressive disorders (3) YSABEL (generalized anxiety disorder): Status: Acute Code(s): F41.1 - Generalized anxiety disorder Assessment and Plan: Pt is a 36 y.o. female who reports long hx of seasonal affective disorder, however sx may more likely be a function of undiagnosed MDD, recurrent episode and YSABLE, as pt is high functioning but has been struggling with anxiety and mood sx for some time. She has a hx of restricting her eating, over exercising, low self esteem, hard on self, and has strained relationships in family system due to untreated father's alcoholism. Pt recently ended engagement to man she has been with on/ off for 18 yrs, describes him as alcoholic and the relationship was unhealthy. Pt endorses sx of irritability with increasing anxious distress in the context of feeling overworked. -patient has long history of anxiety that has become overwhelming given recent psychosocial stressors; that said she is becoming more aware of her people pleasing attitude and starting to trying challenge it. Patient no longer has any suicidal ideation, is future oriented and wanting treatment. Patient is considering starting an SSRI even though she has traditionally avoided psychiatric medications. She mostly wants therapy as an outpatient and writer editor agrees that this will be an essential part of her recovery as she has chronic struggles with anxiety, moderate depression and self-esteem. Patient placed a 3 day notice. Patient will remain in the unit for another day or so however if she remains stable and with good impulse and behavioral control, will likely discharge. Plan: 3 day notice q15 min checks Pt considering SSRI continue for now, ativan 0.5 mg BID PRN, prescribed by PCP. She does acknoweledge hx of overuse, however she is attached to this medication and precontemplative of discontinuing. Monitor response to medications. Monitor for safety in the milieu. Discharge on stabilization. Patient seen. Chart reviewed. Discussed with team. Obtain collateral contact info?as needed I spent minutes with the patient and/or on the patient floor today, greater than?50% of which was spent counseling/coordinating care. Reason for contiued inpatient stay Substantial Risk for: med/psych decompensation
[2021-06-15 10:06] LABS: Folate 18.9 ng/mL (> or = 4.0); Vitamin B12 1140 pg/mL (200-900)
--- NOTE | 2021-06-15 14:19 | PC.NURSE ---
3 DAY NOTICE SIGNED ON 06/15/2021. UP ON Monday.
[2021-06-15 19:40] VITALS: BP 116/71; PULSE 72; TEMP 36.1; O2SAT 97
[2021-06-15] MEDS: LORazepam 0.5 MG TABLET PO (21:49)
[2021-06-16 06:20] VITALS: BP 103/70; PULSE 77; RESP 16; TEMP 36.1; O2SAT 98
--- NOTE | 2021-06-16 13:56 | HO.PSYCHPN ---
Subjective Subjective Date of Service: 06/16/21 Reason For Visit: Depression, S/P suicide attempt Interim History: Patient reports she is doing much better. She said she slept well last night and is grateful that she can discharge tomorrow. Patient denies any SI. She is still perplexed as to what caused her suicidal act and is trying to come up with the Why she thinks that may be she was feeling so anxious and so overwhelmed that she was just trying to get the anxieties to stop. Patient still ambivalent about medications, struggling with the stigma, especially from her family and worries about side effects. Patient however was able to ask all her questions and feel comfortable coming to the conclusion that she will indeed try Prozac (real estate underwriter reviewed risks/side effects). Patient would like to attend partial after discharge and was thankful that social Work was able to set her up with a therapist. Patient's father visited today which she said was awkward however her older sister visited later on which was very comforting for patient. Patient shared about her family dynamic, the un-spoken issues in the family, and specifically their father's chronic alcoholism which is seldom discussed. Patient feels that a lot of her anxiety comes from coping with this issue while growing up. Mental Status Exam Mental Status Exam Narrative: Pt is alert and oriented; behavior is cooperative, friendly; dressed in bathrobe from home with good hygiene; mood is described as better and affect brighter, calmer; eye contact appropriate; Speech is normal rate, volume and prosody and not pressured; no psychomotor agitation/retardation present; thought process is organized, logical and goal directed. Thought content is on getting treatment; otherwise pertinent to relevant topics and without any delusional content, paranoid ideations or grandiosity; denies any SI/HI. There is no evidence of perceptual disturbance. ?Patients insight and judgment appears intact. Diagnostics Vital Signs (24Hr): Vital Signs - 24 hr 06/15/21 19:40 06/16/21 06:20 Temperature 97.0 F 96.9 F Pulse Rate 72 77 Respiratory Rate 16 Blood Pressure 116/71 103/70 Pulse Oximetry 97 98 BMI result Body Mass Index 23.6 Labs Results: 06/13/21 12:01 06/13/21 12:01 Labs: Laboratory Results - last 48 hr 06/15/21 06/15/21 06/15/21 08:13 08:13 08:13 Estimat Average Glucose 97 Hemoglobin A1c % 5.0 Magnesium 2.0 Triglycerides 60 Cholesterol 185 LDL Cholesterol, Calc 110 HDL Cholesterol 63 Vitamin B12 1140 H Folate 18.9 TSH 1.95 Free T4 1.00 Medications Medications Current Medications Acetaminophen (Acetaminophen 325 Mg Tablet) 650 mg PO Q6H PRN PRN Reason: Headache/Pain Mild Scale (1-3) Al Hydroxide/Mg Hydroxide (Magnesium Hydrox/Alum Hydrox 30 Ml Oral.Susp) 30 ml PO Q6H PRN PRN Reason: Heartburn/Nausea Hydroxyzine HCl (Hydroxyzine Hcl 25 Mg Tablet) 25 mg PO BEDTIME PRN PRN Reason: Anxiety Lorazepam (Lorazepam 0.5 Mg Tablet) 0.5 mg PO BID PRN PRN Reason: Anxiety Last Admin: 06/15/21 21:49 Dose: 0.5 mg Documented by: Magnesium Hydroxide (Milk Of Magnesia 30 Ml Oral.Susp) 30 ml PO DAILY PRN PRN Reason: Constipation Trazodone HCl (Trazodone Hcl 50 Mg Tablet) 50 mg PO BEDTIME PRN PRN Reason: Insomnia Allergies Allergies Allergy/AdvReac Type Severity Reaction Status Date / Time No Known Allergies Allergy Unverified 06/13/21 11:48 Assessment & Plan Assessment & Plan (1) MDD (major depressive disorder), recurrent episode, moderate: Status: Acute Code(s): F33.1 - Major depressive disorder, recurrent, moderate (2) Seasonal affective disorder: Status: Acute Code(s): F33.8 - Other recurrent depressive disorders (3) YSABEL (generalized anxiety disorder): Status: Acute Code(s): F41.1 - Generalized anxiety disorder Assessment and Plan: Pt is a 36 y.o. female who reports long hx of seasonal affective disorder, however sx may more likely be a function of undiagnosed MDD, recurrent episode and YSABEL, as pt is high functioning but has been struggling with anxiety and mood sx for some time. She has a hx of restricting her eating, over exercising, low self esteem, hard on self, and has strained relationships in family system due to untreated father's alcoholism. Pt recently ended engagement to man she has been with on/ off for 18 yrs, describes him as alcoholic and the relationship was unhealthy. Pt endorses sx of irritability with increasing anxious distress in the context of feeling overworked. -patient has long history of anxiety that has become overwhelming given recent psychosocial stressors; that said she is becoming more aware of her people pleasing attitude and starting to trying challenge it. Patient no longer has any suicidal ideation, is future oriented and wanting treatment. Patient is considering starting an SSRI even though she has traditionally avoided psychiatric medications. She mostly wants therapy as an outpatient and real estate underwriter agrees that this will be an essential part of her recovery as she has chronic struggles with anxiety, moderate depression and self-esteem. Patient placed a 3 day notice. Patient will remain in the unit for another day or so however if she remains stable and with good impulse and behavioral control, will likely discharge. -patient reports feeling better. She denies any SI at all. She is very eager to engage with therapy including 1 on 1 psychotherapy as well as attending partial program post discharge. Patient made the decision to start on Prozac feeling that the benefits outweighed the risks and her concerns. Patient reports feeling safe and would like to discharge tomorrow. Patient has remained stable with good behavioral and impulse control the unit. She is attending groups and is engaged in therapy. Patient is not in imminent risk for harm to self or others and her request for discharge honored. Plan: 3 day notice q15 min checks Start Prozac 10 mg continue for now, ativan 0.5 mg BID PRN, prescribed by PCP. She does acknoweledge hx of overuse, however she is attached to this medication and precontemplative of discontinuing. Monitor response to medications. Monitor for safety in the milieu. Discharge on stabilization. Patient seen. Chart reviewed. Discussed with team. Obtain collateral contact info?as needed I spent minutes with the patient and/or on the patient floor today, greater than?50% of which was spent counseling/coordinating care. Reason for contiued inpatient stay Substantial Risk for: stable for discharge
[2021-06-16 18:35] VITALS: BP 107/68; PULSE 71; RESP 17; TEMP 36.5; O2SAT 99
[2021-06-17 06:00] VITALS: BP 154/57; PULSE 91; TEMP 36.8; O2SAT 98
--- NOTE | 2021-06-17 10:55 | PM.PSYDC ---
DS: Providers Provider Date of Service: 06/17/21 Date of admission: 06/14/21 10:24 Date of discharge: 06/17/21 Primary care physician: Asad Ahumada MD Admitting clinician: Tammy Morales Attending physician on discharge: Bernard Batista DS: Diagnosis Discharge Diagnosis (1) MDD (major depressive disorder), recurrent episode, moderate: Status: Chronic (2) Seasonal affective disorder: Status: Chronic (3) YSABEL (generalized anxiety disorder): Status: Chronic DS: Medications Discharge Medications Home Medications: Home Medications Medication Instructions Recorded Confirmed lorazepam 0.5 mg tablet 1 tab PO BID PRN 06/13/21 06/13/21 norethindrone 1 mg-ethinyl 1 tab PO DAILY 06/14/21 06/14/21 estradiol 10 mcg (24)-iron 10 mcg(2) tablet (Lo Loestrin Fe) Previous Rx's Medication Instructions Recorded fluoxetine 10 mg capsule (Prozac) 10 mg PO DAILY 30 Days #30 cap 06/17/21 Mental Status Exam Mental Status Exam Narrative: Pt is alert and oriented; behavior is cooperative, friendly, calm; dressed in casual cloths with good hygiene; mood is described as better and affect brighter, calmer; eye contact appropriate; Speech is normal rate, volume and prosody and not pressured; no psychomotor agitation/retardation present; thought process is organized, logical and goal directed. Thought content is on continuing treatment post discharge; otherwise pertinent to relevant topics and without any delusional content, paranoid ideations or grandiosity; denies any SI/HI. There is no evidence of perceptual disturbance. ?Patients insight and judgment are intact. Data Data Completed and Pending Completed studies during hospitalization [Text1]: 06/13/21 06/13/21 06/13/21 11:36 11:36 11:36 WBC RBC Hgb Hct MCV MCH MCHC RDW Plt Count MPV Immature Gran % (Auto) Neut % (Auto) Lymph % (Auto) Sterling % (Auto) Eos % (Auto) Baso % (Auto) Lymph # (Auto) Sterling # (Auto) Eos # (Auto) Baso # (Auto) Abs Immat Gran (auto) Absolute Neuts (auto) Absolute Nucleated RBC Nucleated RBC % (auto) Sodium Potassium Chloride Carbon Dioxide Anion Gap BUN Creatinine Estim Creat Clear Calc Estimated GFR Random Glucose Estimat Average Glucose Hemoglobin A1c % Calcium Magnesium Total Bilirubin Direct Bilirubin AST ALT Alkaline Phosphatase Total Protein Albumin Triglycerides Cholesterol LDL Cholesterol, Calc HDL Cholesterol Vitamin B12 Folate TSH Free T4 Urine Test NEGATIVE Urine Opiates Screen Not Detected Urine Fentanyl Screen Not Detected Ur Barbiturates Screen Not Detected Ur Phencyclidine Scrn Not Detected Ur Amphetamines Screen Not Detected U Benzodiazepines Scrn Not Detected Urine Cocaine Screen Not Detected U Marijuana (THC) Screen Not Detected COVID-19 ([facility]) Negative COVID-19 Site[employer]inder See Note 06/13/21 06/13/21 06/15/21 12:01 12:01 08:13 WBC 7.4 RBC 4.33 Hgb 12.8 Hct 39.0 MCV 90.1 MCH 29.6 MCHC 32.8 RDW 12.4 Plt Count 248 MPV 10.0 Immature Gran % (Auto) 0.3 Neut % (Auto) 70.3 Lymph % (Auto) 21.7 Sterling % (Auto) 6.5 Eos % (Auto) 0.5 Baso % (Auto) 0.7 Lymph # (Auto) 1.6 Sterling # (Auto) 0.5 Eos # (Auto) 0.0 Baso # (Auto) 0.1 Abs Immat Gran (auto) 0.02 Absolute Neuts (auto) 5.2 Absolute Nucleated RBC 0.000 Nucleated RBC % (auto) 0.0 Sodium 143 Potassium 4.1 Chloride 109 H Carbon Dioxide 25 Anion Gap 13 BUN 12 Creatinine 0.82 Estim Creat Clear Calc 70.8 Estimated GFR > 60 Random Glucose 93 Estimat Average Glucose 97 Hemoglobin A1c % 5.0 Calcium 9.5 Magnesium 1.8 Total Bilirubin 1.3 H Direct Bilirubin 0.5 AST 35 H D ALT 23 Alkaline Phosphatase 41 Total Protein 6.5 Albumin 4.1 Triglycerides Cholesterol LDL Cholesterol, Calc HDL Cholesterol Vitamin B12 Folate TSH Free T4 Urine Test Urine Opiates Screen Urine Fentanyl Screen Ur Barbiturates Screen Ur Phencyclidine Scrn Ur Amphetamines Screen U Benzodiazepines Scrn Urine Cocaine Screen U Marijuana (THC) Screen COVID-19 ([facility]ANC) COVID-19 [employer]inder 06/15/21 06/15/21 08:13 08:13 WBC RBC Hgb Hct MCV MCH MCHC RDW Plt Count MPV Immature Gran % (Auto) Neut % (Auto) Lymph % (Auto) Sterling % (Auto) Eos % (Auto) Baso % (Auto) Lymph # (Auto) Sterling # (Auto) Eos # (Auto) Baso # (Auto) Abs Immat Gran (auto) Absolute Neuts (auto) Absolute Nucleated RBC Nucleated RBC % (auto) Sodium Potassium Chloride Carbon Dioxide Anion Gap BUN Creatinine Estim Creat Clear Calc Estimated GFR Random Glucose Estimat Average Glucose Hemoglobin A1c % Calcium Magnesium 2.0 Total Bilirubin Direct Bilirubin AST ALT Alkaline Phosphatase Total Protein Albumin Triglycerides 60 Cholesterol 185 LDL Cholesterol, Calc 110 HDL Cholesterol 63 Vitamin B12 1140 H Folate 18.9 TSH 1.95 Free T4 1.00 Urine Test Urine Opiates Screen Urine Fentanyl Screen Ur Barbiturates Screen Ur Phencyclidine Scrn Ur Amphetamines Screen U Benzodiazepines Scrn Urine Cocaine Screen U Marijuana (THC) Screen COVID-19 ([facility]) COVID-19 Clin Com DS: Summary Hospital Course Hospital Course: Pt is a 36 y.o. female who reports long hx of episodic MDD and YSABEL who self presented with SI and having impulsively timing a cord around her neck in the face of untreated anxiety, depression and break-up with figisellee after over a decade of time together. Patient is high functioning but has been struggling with anxiety and mood sx for some time. She has a hx of restricting her eating, over exercising, low self esteem, hard on self, and has strained relationships in family system due to untreated father's alcoholism. Pt recently ended engagement to man she has been with on/ off for 18 yrs, describes him as alcoholic and the relationship was unhealthy. Pt endorses sx of irritability with increasing anxious distress in the context of feeling overworked. On admission, patient was anxious and with moderate depression however suicidality had fully resolved. Patient signed a CV. She was eager for treatment though very uncomfortable on the unit. Patient was forthcoming during interviews and articulate and self aware about her history and struggles with both anxiety and depression, much of it is stemming from growing up with an alcoholic father. Patient was very ambivalent about starting medication given its stigma and her family's negative attitude towards mental health however patient reviewed the risks/side effects of Prozac and considered it worth starting this medication for treatment. Patient was also eager to get into therapy which was set up for her. Patient placed a 3 day notice. She felt that her depression had lessened, anxiety lessened and that she had a better sense of the factors that led up to this incident and also ready to address them in therapy. Patient remained in good behavioral and impulse control; she was appropriate with peers and staff, attending groups and engaged in treatment. Patient is future oriented, with strong community support via family and friends. Patient is optimistic about working on her issues as an outpatient. Her affect is noticeably brighter and more relaxed. She reports feeling safe and says she would reach out for help if feeling otherwise. Patient is not in imminent risk for harm to self or others and does not rise to the level of involuntary commitment. Her [facility] for discharge was honored. -patient reports feeling better.? She denies any SI at all.? She is very eager to engage with therapy including 1 on 1 psychotherapy as well as attending partial program post discharge.? Patient made the decision to start on Prozac feeling that the benefits outweighed the risks and her concerns.? Patient reports feeling safe and would like to discharge tomorrow.? Patient has remained stable with good behavioral and impulse control the unit.? She is attending groups and is engaged in therapy.? Patient is not in imminent risk for harm to self or others and her request for discharge honored. Oil Well Engineer discussed patient's use of benzodiazepine. She agrees that this is not an ideal medication and will work to discontinue it. Of note she is prescribed 0.5 mg at bedtime; the only times she ever increased the dose was over past few weeks, struggling to sleep during which time she would intermittently take a second 0.5mg tab. She has never taking it during the day and never taken more than 1 mg total in the evening. Patient has no history of substance abuse Time spent discussing smoking cessation with patient: 3 to 10 minutes (non-smoker) Status at Discharge Functional status at discharge: independent ambulation Overall status at discharge: patient is back to baseline Time Spent with Patient Time attestation: Total time spent providing and/or coordinating discharge services: Time spent: Greater than 30 minutes Discharge Plan Discharge Patient Disposition: Home, Self-Care Discharge Diagnosis: Mdd, recurrent, moderate, in partial remission Referrals: Maria E Majano [Other] - 06/22/21 11:00 am (Initial Diagnostic Evaluation with Therapist In Office Appointment) Ann Barrera [Other] - 07/13/21 3:20 pm (Tele-health appointment for Psychiatric Evaluation Check email for link to provider appointment) Ann Barrera [Other] - 08/10/21 10:00 am (Medication Management Appointment Tele-Health appointment be sure check to check email for link to scheduled appointment.) Asad Ahumada MD [Primary Care Provider] - (PLEASE FOLLOW UP ) Discharge Medications: New fluoxetine [Prozac] 10 mg capsule 10 mg PO DAILY 30 Days Qty: 30 RF: 0 Continued Lo Loestrin Fe 1 mg-10 mcg (24)/10 mcg (2) tablet 1 tab PO DAILY RF: 0 Discontinued lorazepam 0.5 mg tablet 1 tab PO BID PRN (Reason: Anxiety) RF: 0 Discharge Orders: Discharge Order (Routine); Ordered 06/17/21 Ordered By: Bernard Batista Diet: regular diet Activity on Discharge: As tolerated Stand Alone Forms: Patient Portal Discharge page, Community Support Care Plan Goals: Maintain mood and safe behaviors Take medications as prescribed Practice coping skills Continue with outpatient providers and reach out to them as needed Health Concerns: Mood stability and behaviors Plan of Treatment: Follow up with your PCP, psychiatric provider and other outpatient providers regarding above concerns Take medications as prescribed Assessment: Risk assessment at time of discharge:? Patient was interviewed prior to discharge and found to be fully oriented and without any SI or HI. Patient has insight and demonstrates good judgment in terms of wanting to pursue treatment. Patient is not in imminent risk of harm to self or others and has a safety plan that includes presenting to the closest ER or calling 911 if feeling unsafe.? Patient has been observed closely by nursing and unit staff throughout admission; patient has not engaged in any behaviors that suggest dangerousness to self or others and has demonstrated appropriate behaviors and impulse control Discharge Date/Time: 06/17/21 13:30
[2021-06-17] MEDS: FLUoxetine HCl 10 MG CAPSULE PO (10:56)
== END 2021-06-17 13:30 | disposition home or self-care (01) | DRG 751 ==
LOC: HO.ED 06-14 15:29 → HO.PM5 06-14 15:31
PROVIDERS: Clinical Nurse Specialist Psychiatric/Mental Health, Adult; Physician Assistant; Admitting Provider Psychiatry & Neurology Psychiatry; Emergency Provider Emergency Medicine; PCP Internal Medicine; Visit Provider Psychiatry & Neurology Psychiatry
DX: F33.1 Major depressive disorder, recurrent, moderate (principal); R45.851 Suicidal ideations; F41.1 Generalized anxiety disorder; Z20.822 Contact with and (suspected) exposure to COVID-19; Z91.51 Personal history of suicidal behavior; Z79.899 Other long term (current) drug therapy
CPT/HCPCS: 36415; 80048; 80061; 80076; 80307; 81025; 82607; 82746; 83036; 83735; 84439; 84443; 85025; 87635; 93005; 99285